=== PATIENT | male | born 2000 | race Caucasian/White ===

== ENCOUNTER 2020-05-31 11:57 | Emergency (ER) | payer MEDICAID ==
[~2020-05-31] VITALS: Ht 180.3 cm; Wt 86.1 kg
[2020-05-31] MEDS ORDERED: ONDANSETRON HCL 4MG/2ML INJ IV STA (12:19)
[2020-05-31] MEDS ORDERED: SODIUM CHLORIDE 0.9% 1,000 ML IV ONE (12:19)
[2020-05-31] MEDS ORDERED: FAMOTIDINE 20MG/2ML VIAL IV STA (12:19)
[2020-05-31 15:02] LABS: BASOPHILS % 0.3 % (0.0-2.0); EOSINOPHILS % 0.3 % (0.0-5.0); HEMATOCRIT. 46.3 % (42.0-52.0); LYMPHOCYTES % 25.8 % (20.0-50.0); MEAN CORPUSCULAR VOLUME 86.5 fL (80.0-94.0); MEAN PLATELET VOLUME 10.3 fl (7.4-10.4); MONOCYTES % 8.8 % (2.0-8.0); NEUTROPHILS % 64.8 % (40.0-76.0); PLATELET 221 x1000/uL (130-400); RED BLOOD CELL COUNT 5.36 mill/uL (4.7-6.1); RED CELL DISTRIBUTION WIDTH 13.5 % (11.6-14.6)
[2020-05-31 15:05] LABS: CHLORIDE 105 mEq/L (98-107)
[2020-05-31 15:08] LABS: INR 1.1; PROTHROMBIN TIME 11.4 sec (9.6-11.0)
[2020-05-31 15:09] LABS: ETHANOL BLOOD < 10 mg/dL
[2020-05-31 15:12] LABS: CLARITY URINE CLEAR (CLEAR); COLOR URINE YELLOW (YELLOW); KETONES URINE 1+ (NEGATIVE); LEUKOCYTE ESTERASE URINE NEGATIVE (NEGATIVE); NITRITE URINE NEGATIVE (NEGATIVE); OCCULT BLOOD URINE NEGATIVE (NEGATIVE); PH URINE 6.5 (4.5-8.0); PROTEIN URINE NEGATIVE (NEGATIVE); SPECIFIC GRAVITY URINE 1.012 (1.005-1.030); UROBILINOGEN URINE 0.2 E.U./dL (0.2-1.0)
[2020-05-31 15:25] LABS: *AMPHETAMINES SCREEN URINE NEGATIVE (NEGATIVE); CANNABINOID URINE SCREEN PRESUMTIVE POSITIVE (NEGATIVE); METHADONE URINE SCREEN NEGATIVE (NEGATIVE); OPIATES URINE SCREEN NEGATIVE (NEGATIVE); PHENCYCLIDINE URINE SCREEN NEGATIVE (NEGATIVE)
[2020-05-31 15:26] LABS: *BARBITURATES SCREEN URINE NEGATIVE (NEGATIVE); *BENZODIAZEPINES SCREEN URINE NEGATIVE (NEGATIVE); *COCAINE SCREEN URINE NEGATIVE (NEGATIVE)
[2020-05-31 15:46] VITALS: BP 128/70
== END 2020-05-31 15:50 | disposition home or self-care (01) ==
LOC: ER 11:57
DX: R10.13 Epigastric pain (principal); R11.0 Nausea
CPT/HCPCS: 36415; 71045; 80053; 80305; 80320; 81003; 83690; 84484; 85025; 85610; 93005; 96374; 96375; 99285; J2405; J3490; J7030; G0480

== ENCOUNTER 2021-05-28 22:18 | Emergency (ER) | payer MEDICAID, OTHER ==
[~2021-05-28] VITALS: Ht 182.9 cm; Wt 89.0 kg
[2021-05-29] MEDS ORDERED: KETOROLAC 60MG/2ML VIAL IM ONE (00:30)
[2021-05-29 01:30] VITALS: BP 148/65
[2021-05-29] MEDS ORDERED: NAPR-681 MT (02:26)
== END 2021-05-29 03:22 | disposition home or self-care (01) ==
LOC: ER 22:18
DX: S93.492A Sprain of other ligament of left ankle, initial encounter (principal); Y93.67 Activity, basketball; Y93.89 Activity, other specified; Y92.89 Other specified places as the place of occurrence of the external cause
CPT/HCPCS: 29515; 73610; 96372; 99283; J1885; Z7610

== ENCOUNTER 2023-09-26 07:22 | Emergency (ER) | payer MEDICAID ==
[~2023-09-26] VITALS: Ht 182.9 cm; Wt 86.2 kg
[~2023-09-26 07:22] MED LIST: NAPR-681 MT
[2023-09-26 07:41] VITALS: O2SAT 97
[2023-09-26] MEDS ORDERED: TETANUS, DIPHTHERIA, PERTUSSIS VAC/PF 0.5ML (>10YR OLD) IM ONE (09:15)
[2023-09-26] MEDS ORDERED: LIDOCAINE HCL/PF 1% 10 MG/ML 5ML VIAL INFIL ONE (09:15)
[2023-09-26] MEDS ORDERED: BACITRACIN ZINC OINT UDPKT TOP ONE (09:15)
[2023-09-26 11:14] VITALS: BP 124/87; PULSE 97; RESP 16; TEMP 98.2
== END 2023-09-26 11:15 | disposition home or self-care (01) ==
LOC: ER 07:22
DX: S01.111A Laceration without foreign body of right eyelid and periocular area, initial encounter (principal); W19.XXXA Unspecified fall, initial encounter; Y93.89 Activity, other specified; Y92.89 Other specified places as the place of occurrence of the external cause; Y99.8 Other external cause status
CPT/HCPCS: 12011; 90471; 90715; 99283; J3490

== ENCOUNTER 2023-10-01 18:31 | Emergency (ER) | payer MEDICAID ==
[~2023-10-01] VITALS: Ht 182.9 cm; Wt 100.0 kg
[2023-10-01 18:43] VITALS: O2SAT 98
[2023-10-01 19:57] VITALS: BP 120/56; PULSE 78; RESP 18; TEMP 98.6
== END 2023-10-01 19:53 | disposition home or self-care (01) ==
LOC: ER 18:31
DX: S01.111D Laceration without foreign body of right eyelid and periocular area, subsequent encounter (principal); X58.XXXD Exposure to other specified factors, subsequent encounter
CPT/HCPCS: 99281; Z7610 ×4